=== PATIENT | male | born 1960 ===

== ENCOUNTER 2017-08-15 09:55 | Day surgery (SDC) | payer OTHER ==
[2017-08-15 11:02] LABS: BASO # 0.02 K/mm3 (0.0-2.0); BASO % 0.4 % (0.0-3.0); EOS # 0.5 (0.0-0.7); EOS % 9.3 % (1.5-5.0); GRAN # 1.84 (1.4-6.5); GRAN % 36.5 % (50.0-68.0); HEMOGLOBIN 13.8 g/dL (14.0-18.0); LYMPH # 2.5 (1.2-3.4); LYMPH % 48.6 % (22.0-35.0); MEAN CELL VOLUME 83.8 fl (80.0-105.0); MEAN CORPUSCULAR HEMOGLOBIN 29.4 pg (25.0-35.0); MEAN CORPUSCULAR HGB CONC 35.1 g/dl (31.0-37.0); MEAN PLATELET VOLUME 10.3 fl (7.0-11.0); MONO # 0.3 (0.1-0.6); MONO % 5.2 % (1.0-6.0); RBC 4.69 10^6/uL (3.5-6.1); RED CELL DISTRIBUTION WIDTH 13.5 % (11.5-14.5)
[2017-08-15 11:08] LABS: BLOOD UREA NITROGEN 13 mg/dL (7-21); CALCIUM 9.1 mg/dL (8.4-10.5); GFR AFRICAN-AMERICAN > 60; GFR NON-AFRICAN AMERICAN > 60; HDL CHOLESTEROL 49 mg/dL (29-60)
[2017-08-15 11:13] LABS: INR 1.02 (0.93-1.08); PARTIAL THROMBOPLASTIN TIME 30.9 Seconds (25.1-36.5); PROTHROMBIN TIME 11.7 SECONDS (9.4-12.5)
[2017-08-15 11:18] LABS: LDL CHOLESTEROL 77 mg/dL (0-129)
--- NOTE | 2017-08-15 13:04 | CARD ---
APPROVED REPORT EKG Measurement Heart [id number] ID [id number] <Conclusion> Sinus bradycardia Right bundle branch block Abnormal ECG
[2017-08-15] MEDS ORDERED: Midazolam 2 MG/2 ML VIAL ONE ×2 (13:56→14:16)
[2017-08-15] MEDS ORDERED: Verapamil 2 ML ONE (13:56)
[2017-08-15] MEDS ORDERED: Lidocaine 2% Inj (20ml) ONE (13:56)
[2017-08-15] MEDS ORDERED: Iodixanol 320 MG/ML 200 ML BOTTLE IV ONE (13:57)
[2017-08-15] MEDS ORDERED: Iohexol 350mgl/ml 50 ML ONE (13:57)
[2017-08-15] MEDS ORDERED: Nitroglycerin 50mg in D5W 50 MG/250 ML BOTTLE IV ONE (13:57)
[2017-08-15] MEDS ORDERED: Bacitracin 500 Units/gm Oint Foilpak UD TOP ONE (14:55)
[2017-08-15 15:59] VITALS: TEMP 98.1
--- NOTE | 2017-08-15 18:18 | CARDCATH ---
PROCEDURE DATE: 08/15/2017 INDICATIONS: Mr. Jair Wolfe is a 56-year-old male with past medical history significant for hypertension, diabetes, hyperlipidemia, referred to me for evaluation of abnormal stress test. He had past remote history of CAD and stenting. He underwent a stress test, which showed evidence of ischemia. He was therefore brought to the [facility] for further evaluation and treatment. PROCEDURES PERFORMED: Left heart catheterization with selective left and right coronary angiogram via left distal radial arterial access, 6-Malay left distal radial arterial access, percutaneous transluminal coronary angioplasty and stenting of mid right coronary artery and proximal posterior descending artery with deployment of 2 drug-eluting stents. Lesion reduction in mid right coronary artery from 80% down to 0% ARIELLE-3 flow, in posterior descending artery from 95% down to 0% ARIELLE-3 flow. Left ventriculogram, wrist band for hemostasis. TECHNIQUES OF PROCEDURE: After obtaining informed consent, the patient was brought to the cardiac cath suite in post-absorptive, non-sedated state. The patient was prepped and draped in the usual sterile fashion. A 2% lidocaine was used for infiltration of anesthesia. Using modified Seldinger technique, a 6-Malay sheath was introduced into the left distal radial arterial access. Subsequently, over a J-wire, JL4 and JR4 diagnostic catheters were used to engage the left and right coronary system. Angiograms were obtained in different orthogonal views. Subsequently, over J-, pigtail catheter was advanced into the LV and LV gram was obtained in the BEEBE view. Hemodynamics were obtained and pullback gradients were noted. CORONARY ANATOMY: Left main large-sized vessel bifurcates into LAD and left circumflex coronary artery. Left circumflex is a large-sized vessel, gives off 2 obtuse marginal branches, free of any significant disease. LAD is a large-sized vessel, has a mid LAD stent patent with the mid LAD proximal to the stent has moderate 50% stenosis and past the stent has a moderate 40% stenosis. The distal LAD at the apex has about 85% stenosis, it is a small vessel, too small for stenting. Right coronary artery large-sized vessel, gives off the right PDA and PLV branches. Mid RCA has 80% stenosis. PDA has a proximal 95% stenosis. Left ventricular end diastolic pressure was 80 mmHg. There was no gradient noted upon the aortic valve pullback. There was no AI, no MR. Left ventricular ejection fraction estimated to be 50%. INTERVENTION PERFORMED: JR4 guiding catheter used to engage the right coronary artery. Prowater wire was used to negotiate the lesion into the PDA. The patient was predilated with a 2-0 balloon and subsequently stented with a 2.25 x 15 mm Albin drug eluting stent. Subsequently, the mid RCA lesion was stented with a 3.5 x 18 Albin drug eluting stent and postdilated with a 4 noncompliant balloon. Final angiogram done showed regeneration down to 0% ARIELLE-3 flow. IMPRESSION: Successful revascularization of the mid right coronary artery and right posterior descending artery, deployment of 2 drug-eluting stents. Left anterior descending lesions are intermediate and it can be treated medically at this point in time. RECOMMENDATIONS: Continue aggressive medical management, risk factor modification. The patient is going to be discharged in 3 hours. Follow up with Dr. Jiménez in [place] office. Thank you, Dr. Jiménez for letting me participate in the care of your patient. Thank you very much. Galindo Gross MD
[2017-08-15] MEDS ORDERED: Bacitracin 500 Units/gm Oint Foilpak UD ONE (20:56)
[2017-08-15 21:06] VITALS: BP 103/57; PULSE 55; RESP 20
== END 2017-08-15 21:38 | disposition home or self-care (01) ==
LOC: CATH 09:55 → 2RNO 15:10 → CATH 21:38
PROVIDERS: ATTEND Internal Medicine Interventional Cardiology
DX: I25.10 Atherosclerotic heart disease of native coronary artery without angina pectoris (principal); E78.5 Hyperlipidemia, unspecified; E11.9 Type 2 diabetes mellitus without complications; I10 Essential (primary) hypertension; Z95.5 Presence of coronary angioplasty implant and graft
CPT/HCPCS: 36415; 80048; 80061; 85025; 85175; 85610; 85730; 86850; 86900; 93005; 93458; 99152; 99153; C1725 ×2; C1769 ×2; C1874 ×2; C1887 ×2; C1894; C9600; J1644 ×2; J2250; J3010; J7040; Q9966; Q9967

== ENCOUNTER 2018-03-10 11:32 | Emergency (ER) | payer OTHER ==
[2018-03-10 12:06] VITALS: BMI 37.5
[2018-03-10 12:07] VITALS: TEMP 98.7
[2018-03-10 12:46] LABS: BASO # 0.01 K/mm3 (0.0-2.0); BASO % 0.1 % (0.0-3.0); EOS # 0.2 (0.0-0.7); EOS % 2.3 % (1.5-5.0); GRAN # 6.49 (1.4-6.5); GRAN % 66.3 % (50.0-68.0); HEMOGLOBIN 15.1 g/dL (14.0-18.0); LYMPH # 2.4 (1.2-3.4); LYMPH % 24.4 % (22.0-35.0); MEAN CELL VOLUME 85.3 fl (80.0-105.0); MEAN CORPUSCULAR HEMOGLOBIN 30.1 pg (25.0-35.0); MEAN CORPUSCULAR HGB CONC 35.3 g/dl (31.0-37.0); MEAN PLATELET VOLUME 10.3 fl (7.0-11.0); MONO # 0.7 (0.1-0.6); MONO % 6.9 % (1.0-6.0); RBC 5.02 10^6/uL (3.5-6.1); RED CELL DISTRIBUTION WIDTH 13.7 % (11.5-14.5); WHITE BLOOD COUNT 9.8 10^3/uL (4.5-11.0)
[2018-03-10] MEDS ORDERED: cefTRIAXone 1 gm 1 GM/100 ML BAG IVPB STA (12:49)
--- NOTE | 2018-03-10 12:52 | ED PDOC ---
Arrival/HPI - General Chief Complaint: Abnormal Skin Integrity Time Seen by Provider: 03/10/18 11:37 Historian: Patient - History of Present Illness Narrative History of Present Illness (Text): 03/10/18 12:50 57yo male with pmhx of hypertension, Diabetes who present with complaint of abscess to his left knee and abdominal pain x few days. Notes that he had abscess in other parts that have resolved, but these ones started. Reports pain to the area. Denies fever, chills, nausea vomiting, diarrhea, abdominal pain, any other complaint. Past Medical History - Provider Review Nursing Documentation Reviewed: Yes - Infectious Disease Hx of Infectious Diseases: None - Cardiac Hx Cardiac Disorders: No - Pulmonary Hx Respiratory Disorders: No - Neurological Hx Neurological Disorder: No - HEENT Hx HEENT Disorder: No - Renal Hx Renal Disorder: No - Endocrine/Metabolic Hx Endocrine Disorders: Yes Hx Diabetes Mellitus Type 2: Yes - Hematological/Oncological Hx Blood Disorders: No - Integumentary Hx Dermatological Disorder: No - Musculoskeletal/Rheumatological Hx Musculoskeletal Disorders: No - Gastrointestinal Hx Gastrointestinal Disorders: No - Genitourinary/Gynecological Hx Genitourinary Disorders: No - Psychiatric Hx Psychophysiologic Disorder: No Hx Substance Use: No - Surgical History Hx Cardiac Catheterization: Yes (STENT PLACEMENT 2010) - Anesthesia Hx Anesthesia Reactions: No Hx Malignant Hyperthermia: No - Suicidal Assessment Feels Threatened In Home Enviroment: No Family/Social History - Physician Review Nursing Documentation Reviewed: Yes Family/Social History: Unknown Family HX Smoking Status: Never Smoked Hx Alcohol Use: No Hx Substance Use: No Allergies/Home Meds Allergies/Adverse Reactions: Allergies diphenhydramine [From Benadryl] Allergy (Verified 03/10/18 12:07) RASH Home Medications: Home Meds Medication Instructions Recorded Confirmed RX: Glipizide [Glipizide Xl] 10 mg PO DAILY 06/01/17 03/10/18 RX: Insulin Human NPH [Humulin N] 10 units SC HS 06/01/17 03/10/18 RX: Lisinopril [Zestril] 10 mg PO DAILY 06/01/17 03/10/18 RX: Simvastatin [Zocor] 40 mg PO DAILY 06/01/17 03/10/18 Review of Systems - Physician Review All systems were reviewed & negative as marked: Yes - Review of Systems Constitutional: Normal Eyes: Normal ENT: Normal Respiratory: Normal Cardiovascular: Normal Gastrointestinal: Normal Genitourinary Male: Normal Musculoskeletal: Normal Skin: Abscess Neurological: Normal Endocrine: Normal Hemo/Lymphatic: Normal Psychiatric: Normal Physical Exam Vital Signs Reviewed: Yes Vital Signs Temp Pulse BP Pulse Ox 03/10/18 12:07 98.7 F 80 139/73 97 Temperature: Afebrile Blood Pressure: Normal Pulse: Regular Respiratory Rate: Normal Appearance: Positive for: Well-Appearing, Non-Toxic, Comfortable Pain Distress: None Mental Status: Positive for: Alert and Oriented X 3 - Systems Exam Head: Present: Atraumatic, Normocephalic Pupils: Present: PERRL Extroacular Muscles: Present: EOMI Conjunctiva: Present: Normal Mouth: Present: Moist Mucous Membranes Neck: Present: Normal Range of Motion Respiratory/Chest: Present: Clear to Auscultation, Good Air Exchange. No: Respiratory Distress, Accessory Muscle Use Cardiovascular: Present: Regular Rate and Rhythm, Normal S1, S2. No: Murmurs Abdomen: Present: Other (superficial wound with a scab noted on lower abdominal wall). No: Tenderness, Distention, Peritoneal Signs Back: Present: Normal Inspection Upper Extremity: Present: Normal Inspection. No: Cyanosis, Edema Lower Extremity: Present: Normal Inspection, Other (Superficial wound with scab noted on left anterior knee. Surrounding erythema noted. FROM. Warmth. No crepitus). No: Edema Neurological: Present: GCS=15, CN II-XII Intact, Speech Normal Skin: Present: Warm, Dry, Normal Color. No: Rashes Psychiatric: Present: Alert, Oriented x 3, Normal Insight, Normal Concentration Medical Decision Making ED Course and Treatment: 03/10/18 18:57 Pt presented to ED for stated history. He was afebrile and hemodynamically stable. Labs was ordered without leukocytosis. Hyperglycemia was noted and pt was hydrated. Repeated FS improved PT was treated with Rocephin and DC home with Keflex. Advised to f/u with the clinic and TRT ED for worsening redness, fever or pain - Lab Interpretations Lab Results: 03/10/18 11:50 Lab Results 03/10/18 11:50: WBC 9.8, RBC 5.02, Hgb 15.1, Hct 42.8, MCV 85.3, MCH 30.1, MCHC 35.3, RDW 13.7, Plt Count 208, MPV 10.3, Gran % 66.3, Lymph % (Auto) 24.4, Emmons % (Auto) 6.9 H, Eos % (Auto) 2.3, Baso % (Auto) 0.1, Gran # 6.49, Lymph # (Auto) 2.4, Emmons # (Auto) 0.7 H, Eos # (Auto) 0.2, Baso # (Auto) 0.01 Disposition/Present on Arrival - Present on Arrival Any Indicators Present on Arrival: No History of DVT/PE: No History of Uncontrolled Diabetes: Yes Urinary Catheter: No History of Decub. Ulcer: No History Surgical Site Infection Following: None - Disposition Have Diagnosis and Disposition been Completed?: Yes Diagnosis: Hyperglycemia, Cellulitis Disposition: HOME/ ROUTINE Disposition Time: 15:15 Patient Plan: Discharge Condition: STABLE Discharge Instructions (ExitCare): Cellulitis (ED) Additional Instructions: Follow up with your doctor Return to ED for any new or worsening symptoms Prescriptions: Cephalexin [Keflex] 500 mg PO TID #21 capsule Referrals: Mandy Cote MD [Medical Doctor] - Follow up with primary Forms: [employer] ([place]an)
[2018-03-10 13:11] LABS: ALB/GLOB RATIO 1.2 (1.1-1.8); ALBUMIN 4.5 g/dL (3.0-4.8); ALT/SGPT 28 U/L (7-56); AST/SGOT 29 U/L (17-59); BLOOD UREA NITROGEN 17 mg/dL (7-21); CALCIUM 9.6 mg/dL (8.4-10.5); GFR NON-AFRICAN AMERICAN > 60
[2018-03-10] MEDS ORDERED: Sodium Chloride 0.9% 1,000 ML IV STA (13:16)
[2018-03-10 13:56] VITALS: RESP 18; O2SAT 98
[2018-03-10 15:08] VITALS: BP 135/64; PULSE 75
== END 2018-03-10 15:53 | disposition home or self-care (01) ==
LOC: ED 11:32
DX: E11.65 Type 2 diabetes mellitus with hyperglycemia (principal); L03.116 Cellulitis of left lower limb
CPT/HCPCS: 80053; 82948; 85025; 87040; 99283; J0696; J7030

== ENCOUNTER 2018-03-13 20:27 | Inpatient (IN) | payer MEDICAID, OTHER ==
[2018-03-13 21:02] VITALS: BMI 39.0
[2018-03-13] MEDS ORDERED: Clindamycin 600mg/50ml D5W 600 MG/50 ML VIAL IVPB STA (21:23)
--- NOTE | 2018-03-13 21:25 | ED PDOC ---
Arrival/HPI - General Chief Complaint: Lower Extremity Problem/Injury Time Seen by Provider: 03/13/18 21:01 Historian: Patient - History of Present Illness Narrative History of Present Illness (Text): 03/13/18 21:20 57 year old male, whose past medical history includes hypertension and diabetes, presents to the emergency department with complaint of abscess to the left knee, for 3 days. Patient was seen in emergency department 3 days prior for symptoms, was given Rocephin and Rx for Keflex, which he states he has been taking and his symptoms have worsened. Patient states he has had other scattered blisters in the past, but have all resolved. Patient informs it is painful to touch and seems to have reopened. Patient denies any fevers, chills, headache, dizziness, chest pain, shortness of breath, cough, abdominal pain, nausea, vomiting, diarrhea, back pain, neck pain, or any other complaint. 03/14/18 03:24 Time/Duration: < week (3 days) Symptom Onset: Gradual Past Medical History - Provider Review Nursing Documentation Reviewed: Yes - Infectious Disease Hx of Infectious Diseases: None - Cardiac Hx Cardiac Disorders: No - Pulmonary Hx Respiratory Disorders: No - Neurological Hx Neurological Disorder: No - HEENT Hx HEENT Disorder: No - Renal Hx Renal Disorder: No - Endocrine/Metabolic Hx Endocrine Disorders: Yes Hx Diabetes Mellitus Type 2: Yes - Hematological/Oncological Hx Blood Disorders: No - Integumentary Hx Dermatological Disorder: No - Musculoskeletal/Rheumatological Hx Musculoskeletal Disorders: No - Gastrointestinal Hx Gastrointestinal Disorders: No - Genitourinary/Gynecological Hx Genitourinary Disorders: No - Psychiatric Hx Psychophysiologic Disorder: No Hx Substance Use: No - Surgical History Hx Cardiac Catheterization: Yes (STENT PLACEMENT 2010) - Anesthesia Hx Anesthesia Reactions: No Hx Malignant Hyperthermia: No - Suicidal Assessment Feels Threatened In Home Enviroment: No Family/Social History - Physician Review Nursing Documentation Reviewed: Yes Family/Social History: No Known Family HX Smoking Status: Never Smoked Hx Alcohol Use: No Hx Substance Use: No Allergies/Home Meds Allergies/Adverse Reactions: Allergies diphenhydramine [From Benadryl] Allergy (Verified 03/13/18 21:05) RASH Home Medications: Home Meds Medication Instructions Recorded Confirmed RX: Glipizide [Glipizide Xl] 10 mg PO DAILY 06/01/17 03/14/18 RX: Insulin Human NPH [Humulin N] 10 units SC HS 06/01/17 03/14/18 RX: Lisinopril [Zestril] 10 mg PO DAILY 06/01/17 03/14/18 RX: Simvastatin [Zocor] 40 mg PO DAILY 06/01/17 03/14/18 Review of Systems - Physician Review All systems were reviewed & negative as marked: Yes - Review of Systems Constitutional: absent: Fevers, Night Sweats Respiratory: absent: SOB, Cough Cardiovascular: absent: Chest Pain Gastrointestinal: absent: Abdominal Pain, Diarrhea, Nausea, Vomiting Musculoskeletal: absent: Back Pain, Neck Pain Skin: Abscess (to left knee) Neurological: absent: Headache, Dizziness Physical Exam Vital Signs Reviewed: Yes Vital Signs Temp Pulse Resp BP Pulse Ox 03/13/18 20:57 98.3 F 89 18 148/67 97 Temperature: Afebrile Blood Pressure: Normal Pulse: Regular Respiratory Rate: Normal Appearance: Positive for: Well-Appearing, Non-Toxic, Comfortable Pain Distress: None Mental Status: Positive for: Alert and Oriented X 3 - Systems Exam Head: Present: Atraumatic, Normocephalic Pupils: Present: PERRL Extroacular Muscles: Present: EOMI Conjunctiva: Present: Normal Mouth: Present: Moist Mucous Membranes Neck: Present: Normal Range of Motion Respiratory/Chest: Present: Clear to Auscultation, Good Air Exchange. No: Respiratory Distress, Accessory Muscle Use Cardiovascular: Present: Regular Rate and Rhythm, Normal S1, S2. No: Murmurs Abdomen: No: Tenderness, Distention, Peritoneal Signs Back: Present: Normal Inspection Upper Extremity: Present: Normal Inspection. No: Cyanosis, Edema Lower Extremity: Present: NORMAL PULSES (distal pulses 2+), Normal ROM, Tenderness, Erythema, Neurovascularly Intact Neurological: Present: Speech Normal, Motor Func Grossly Intact, Normal Sensory Function Skin: Present: Warm, Dry, Normal Color, Erythematous (area surrounding abscess), Abscess (to the left knee, with clear drainage). No: Rashes, Hot Psychiatric: Present: Alert, Oriented x 3, Normal Insight, Normal Concentration Medical Decision Making ED Course and Treatment: 03/13/18 21:35 Impression: 57 year old male presents with left knee abscess Plan: -- CMP -- CBC -- Clindamycin -- Blood Cultures -- Knee X-rays -- Reassess and disposition Prior Visits: Notes and results from previous visits were reviewed. On 03/10/18 patient came in complaining of leg abscess. Patient was discharged home with prescription of Keflex. Progress Notes: 03/13/18 21:37 Patient wound has been marked 03/13/18 23:45 Dr. Membreno accepts patient under his service. - Scribe Statement The provider has reviewed the documentation as recorded by the Yogi Jackson Provider Scribe Attestation: All medical record entries made by the Miraibrossy were at my direction and personally dictated by me. I have reviewed the chart and agree that the record accurately reflects my personal performance of the history, physical exam, medical decision making, and the department course for this patient. I have also personally directed, reviewed, and agree with the discharge instructions and disposition. Disposition/Present on Arrival - Present on Arrival Any Indicators Present on Arrival: Yes History of DVT/PE: No History of Uncontrolled Diabetes: Yes Urinary Catheter: No History of Decub. Ulcer: No History Surgical Site Infection Following: None - Disposition Have Diagnosis and Disposition been Completed?: Yes Diagnosis: Cellulitis, Failure of outpatient treatment Disposition: HOSPITALIZED Disposition Time: 23:51 Patient Plan: Admission Patient Problems: Current Active Problems Problem Status Onset Cellulitis Acute Failure of outpatient treatment Acute Condition: STABLE
[2018-03-13] MEDS ORDERED: Sodium Chloride 0.9% 1,000 ML IV SCH (21:45)
[2018-03-13 22:05] LABS: BASO # 0.02 K/mm3 (0.0-2.0); BASO % 0.2 % (0.0-3.0); EOS # 0.3 (0.0-0.7); EOS % 3.3 % (1.5-5.0); GRAN # 5.44 (1.4-6.5); GRAN % 59.4 % (50.0-68.0); HEMOGLOBIN 14.2 g/dL (14.0-18.0); LYMPH # 2.8 (1.2-3.4); LYMPH % 30.3 % (22.0-35.0); MEAN CELL VOLUME 85.3 fl (80.0-105.0); MEAN CORPUSCULAR HEMOGLOBIN 29.9 pg (25.0-35.0); MEAN CORPUSCULAR HGB CONC 35.1 g/dl (31.0-37.0); MEAN PLATELET VOLUME 10.7 fl (7.0-11.0); MONO # 0.6 (0.1-0.6); MONO % 6.8 % (1.0-6.0); RBC 4.75 10^6/uL (3.5-6.1); RED CELL DISTRIBUTION WIDTH 13.5 % (11.5-14.5); WHITE BLOOD COUNT 9.2 10^3/uL (4.5-11.0)
[2018-03-13 22:23] LABS: ALB/GLOB RATIO 1.1 (1.1-1.8); BLOOD UREA NITROGEN 18 mg/dL (7-21); CALCIUM 9.5 mg/dL (8.4-10.5); GFR NON-AFRICAN AMERICAN > 60
[2018-03-13 22:27] LABS: ALT/SGPT 24 U/L (7-56); AST/SGOT 28 U/L (17-59)
[2018-03-14] MEDS: Vancomycin 1gm in NS 250ml 1 GM/250 ML BAG IVPB SCH ×3 (01:03→23:17)
--- NOTE | 2018-03-14 01:23 | CP.PCM.HP ---
<Jigar Jaeger - Last Filed: 03/14/18 06:06> History of Present Illness - History of Present Illness History of Present Illness: Marielaleja Jaeger, PGY1 Hospital H&P This is a 57 year old Greenlandic speaking male with PMH of DM, HLD, HTN and CAD s/p 2 stents in 07/2017 presenting to the hospital for left knee swelling. Patient states he noticed swelling in left knee on Saturday morning after he "popped a black head" on his left knee. He admits to developing blackheads on his right lower abdomen over the last week. He was seen in the ED earlier this week for his left knee swelling and discharged on 5 day course of oral antibiotics (keflex). Patient says he was instructed by the ED to return if swelling worsens and returned today after noticing clear fluid discharge and continued swelling t his morning. He denies any bloody or pus draining from left knee. He denies ever having similar symptoms in past. He denies CP, SOB, fevers, nausea, vomiting, back pain, abdominal pain, urinary complaints, numbness, tingling, swelling, diarrhea, constipation, recent travel, sickness, sick contacts, trauma and lifestyle change including diet and weight loss. 12 point ROS noted here, otherwise unremarkable. PMD: [facility] in [place] PMH: DM, HLD, HTN and CAD s/p 2 stents in 07/2017 Meds: reviewed, as per TENISHA SH: denies drinking, smoking and drug Sx: 2 cardiac stents in 07/2017 FH: HTN, DM All: diphenhydramine Present on Admission - Present on Admission Any Indicators Present on Admission: Yes History of Uncontrolled Diabetes: Yes Past Patient History - Infectious Disease Hx of Infectious Diseases: None - Past Medical History & Family History Past Medical History?: No - Past Social History Smoking Status: Never Smoked - CARDIAC Hx Cardiac Disorders: No - PULMONARY Hx Respiratory Disorders: No - NEUROLOGICAL Hx Neurological Disorder: No - HEENT Hx HEENT Problems: No - RENAL Hx Chronic Kidney Disease: No - ENDOCRINE/METABOLIC Hx Endocrine Disorders: Yes Hx Diabetes Mellitus Type 2: Yes - HEMATOLOGICAL/ONCOLOGICAL Hx Blood Disorders: No - INTEGUMENTARY Hx Dermatological Problems: No - MUSCULOSKELETAL/RHEUMATOLOGICAL Hx Musculoskeletal Disorders: No - GASTROINTESTINAL Hx Gastrointestinal Disorders: No - GENITOURINARY/GYNECOLOGICAL Hx Genitourinary Disorders: No - PSYCHIATRIC Hx Psychophysiologic Disorder: No Hx Substance Use: No - SURGICAL HISTORY Hx Cardiac Catheterization: Yes (STENT PLACEMENT 2010) - ANESTHESIA Hx Anesthesia Reactions: No Hx Malignant Hyperthermia: No Meds Allergies/Adverse Reactions: Allergies Allergy/AdvReac Type Severity Reaction Status Date / Time diphenhydramine Allergy RASH Verified 03/13/18 21:05 [From Benadryl] Physical Exam - Constitutional Appears: No Acute Distress - Head Exam Head Exam: ATRAUMATIC, NORMAL INSPECTION - Eye Exam Eye Exam: EOMI Pupil Exam: PERRL - ENT Exam ENT Exam: Mucous Membranes Moist - Respiratory Exam Respiratory Exam: Clear to Auscultation Bilateral, NORMAL BREATHING PATTERN. absent: Accessory Muscle Use, Wheezes, Respiratory Distress - Cardiovascular Exam Cardiovascular Exam: REGULAR RHYTHM, +S1, +S2. absent: Tachycardia - GI/Abdominal Exam GI & Abdominal Exam: Normal Bowel Sounds, Soft. absent: Firm, Guarding, Tenderness Additional comments: several scattered raised lesions with central blackhead noted along RLQ of abdomen, minimal erythema appreciated - Extremities Exam Extremities exam: Positive for: pedal pulses present. Negative for: calf tenderness, tenderness Additional comments: Left knee has approx 5 cm indurated area with swelling and mild eryhtema present. No active discharge, blood or pus appreciated. - Neurological Exam Neurological exam: Alert, Oriented x3 - Skin Skin Exam: Normal Color, Warm Results - Vital Signs Recent Vital Signs: Last Vital Signs Temp 98.3 F 03/13/18 20:57 Pulse 89 03/13/18 20:57 Resp 18 03/13/18 20:57 BP 148/67 03/13/18 20:57 Pulse Ox 97 03/13/18 20:57 - Labs Result Diagrams: 03/13/18 21:43 03/13/18 21:43 Labs: Laboratory Results - last 24 hr 03/13/18 03/13/18 21:43 21:43 WBC 9.2 RBC 4.75 Hgb 14.2 Hct 40.5 L MCV 85.3 MCH 29.9 MCHC 35.1 RDW 13.5 Plt Count 228 MPV 10.7 Gran % 59.4 Lymph % (Auto) 30.3 Page % (Auto) 6.8 H Eos % (Auto) 3.3 Baso % (Auto) 0.2 Gran # 5.44 Lymph # (Auto) 2.8 Page # (Auto) 0.6 Eos # (Auto) 0.3 Baso # (Auto) 0.02 Sodium 136 Potassium 4.3 Chloride 107 Carbon Dioxide 21 Anion Gap 12 BUN 18 Creatinine 0.7 L Est GFR ( Amer) > 60 Est GFR (Non-Af Amer) > 60 Random Glucose 122 H Calcium 9.5 Total Bilirubin 0.4 AST 28 ALT 24 Alkaline Phosphatase 94 Total Protein 7.6 Albumin 4.0 Globulin 3.7 Albumin/Globulin Ratio 1.1 Assessment & Plan - Assessment and Plan (Free Text) Assessment: This is a 57 year old Greenlandic speaking male with PMH of DM, HLD, HTN and CAD s/p 2 stents in 07/2017 presenting to the hospital for left knee swelling. Plan: Left knee swelling -concern for cellulitis vs underlying abscess -afebrile, no WBC present -blood, wound culture pending -vancomycin day 1 -Left knee xray does not show acute pathology, f/u official read -ESR, CRP pending -procalc pending -A1c pending -ID on consult, Dr. Recinos -consider I&D -Gen surg on consult, Dr. Kim Hx of CAD s/p stents -continue ASA, plavix Hx of HTN -continue home BP meds. Toprol XL, imdur and lisinopril Hx of DM -insulin ACHS, 10 units HS Hx of HLD -continue statin PPX/Diet -lovneox, protonix -HHD Patient seen and case discussed with attending, Dr. Membreno <Pilar Membreno - Last Filed: 03/14/18 06:57> Results - Vital Signs Recent Vital Signs: Last Vital Signs Temp 98.1 F 03/14/18 01:44 Pulse 73 03/14/18 01:44 Resp 18 03/14/18 01:44 BP 125/74 03/14/18 01:44 Pulse Ox 95 03/14/18 01:44 - Labs Result Diagrams: 03/13/18 21:43 03/13/18 21:43 Labs: Laboratory Results - last 24 hr 03/13/18 03/13/18 21:43 21:43 WBC 9.2 RBC 4.75 Hgb 14.2 Hct 40.5 L MCV 85.3 MCH 29.9 MCHC 35.1 RDW 13.5 Plt Count 228 MPV 10.7 Gran % 59.4 Lymph % (Auto) 30.3 Page % (Auto) 6.8 H Eos % (Auto) 3.3 Baso % (Auto) 0.2 Gran # 5.44 Lymph # (Auto) 2.8 Page # (Auto) 0.6 Eos # (Auto) 0.3 Baso # (Auto) 0.02 Sodium 136 Potassium 4.3 Chloride 107 Carbon Dioxide 21 Anion Gap 12 BUN 18 Creatinine 0.7 L Est GFR ( Amer) > 60 Est GFR (Non-Af Amer) > 60 Random Glucose 122 H Calcium 9.5 Total Bilirubin 0.4 AST 28 ALT 24 Alkaline Phosphatase 94 Total Protein 7.6 Albumin 4.0 Globulin 3.7 Albumin/Globulin Ratio 1.1 Attending/Attestation - Attestation I have personally seen and examined this patient.: Yes I have fully participated in the care of the patient.: Yes I have reviewed all pertinent clinical information: Yes
[2018-03-14] MEDS ORDERED: Pneumococcal 23-Valent Vaccine IM ONE (01:56)
[2018-03-14] MEDS ORDERED: Influenza Vaccine 60 mcg/0.5 mL SYR (4YR UP) IM ONE (01:56)
[2018-03-14] MEDS: Pantoprazole 40 mg EC Tab PO SCH (05:51)
[2018-03-14 07:02] LABS: ALB/GLOB RATIO 1.1 (1.1-1.8); ALBUMIN 3.8 g/dL (3.0-4.8); ALT/SGPT 23 U/L (7-56); AST/SGOT 25 U/L (17-59); BLOOD UREA NITROGEN 15 mg/dL (7-21); CALCIUM 9.6 mg/dL (8.4-10.5); GFR NON-AFRICAN AMERICAN > 60
[2018-03-14 07:03] LABS: BASO # 0.01 K/mm3 (0.0-2.0); BASO % 0.1 % (0.0-3.0); EOS # 0.3 (0.0-0.7); EOS % 4.3 % (1.5-5.0); GRAN # 3.53 (1.4-6.5); GRAN % 51.2 % (50.0-68.0); HEMOGLOBIN 13.5 g/dL (14.0-18.0); LYMPH # 2.6 (1.2-3.4); MEAN CELL VOLUME 85.9 fl (80.0-105.0); MEAN CORPUSCULAR HEMOGLOBIN 28.8 pg (25.0-35.0); MEAN CORPUSCULAR HGB CONC 33.6 g/dl (31.0-37.0); MONO # 0.5 (0.1-0.6); MONO % 7.4 % (1.0-6.0); RBC 4.68 10^6/uL (3.5-6.1); RED CELL DISTRIBUTION WIDTH 13.7 % (11.5-14.5); WHITE BLOOD COUNT 6.9 10^3/uL (4.5-11.0)
[2018-03-14] MEDS: Insulin Reg-LOW-Coverage SC SCH ×4 (08:35→22:41)
--- NOTE | 2018-03-14 09:42 | RAD ---
Date of service: 03/13/2018 PROCEDURE: Left Knee Radiographs. HISTORY: Pain. COMPARISON: None. FINDINGS: BONES: Normal. No fracture. JOINTS: Normal. No osteoarthritis. JOINT EFFUSION: None. OTHER FINDINGS: None. IMPRESSION: No acute findings related to/ accounting for the clinical presentation.
--- NOTE | 2018-03-14 09:45 | CP.PCM.CON ---
History of Present Illness - History of Present Illness History of Present Illness: 57M with PMHx of PMH: DM, HLD, HTN and CAD s/p 2 stents in 07/2017 presented to [facility] with complaints of left knee swelling. Patient reports he first noticed small skin lesion above his left knee Sat morning after squeezing the pimple like lesion on his left knee. Patient reports he was seen in the ED a week prior where he was prescribed a 5 day course of oral antibiotics. Patient states area did not improve so he decided to come back. At time of examination he denied fever/chills, CP, SOB, nausea/vomiting, abdominal pain, dysuria. PMH: DM, HLD, HTN and CAD s/p 2 stents in 07/2017 Meds: reviewed, as per TENISHA SH: denies drinking, smoking and drug Sx: 2 cardiac stents in 07/2017 FH: HTN, DM All: diphenhydramine Review of Systems - Review of Systems Review of Systems: 10 pt ROS unremarkable except as stated in HPI Past Patient History - Infectious Disease Hx of Infectious Diseases: None - Past Medical History & Family History Past Medical History?: No - Past Social History Smoking Status: Never Smoked - CARDIAC Hx Cardiac Disorders: No - PULMONARY Hx Respiratory Disorders: No - NEUROLOGICAL Hx Neurological Disorder: No - HEENT Hx HEENT Problems: No - RENAL Hx Chronic Kidney Disease: No - ENDOCRINE/METABOLIC Hx Endocrine Disorders: Yes Hx Diabetes Mellitus Type 2: Yes - HEMATOLOGICAL/ONCOLOGICAL Hx Blood Disorders: No - INTEGUMENTARY Hx Dermatological Problems: No - MUSCULOSKELETAL/RHEUMATOLOGICAL Hx Musculoskeletal Disorders: No - GASTROINTESTINAL Hx Gastrointestinal Disorders: No - GENITOURINARY/GYNECOLOGICAL Hx Genitourinary Disorders: No - PSYCHIATRIC Hx Psychophysiologic Disorder: No Hx Substance Use: No - SURGICAL HISTORY Hx Cardiac Catheterization: Yes (STENT PLACEMENT 2010) - ANESTHESIA Hx Anesthesia Reactions: No Hx Malignant Hyperthermia: No Meds Allergies/Adverse Reactions: Allergies Allergy/AdvReac Type Severity Reaction Status Date / Time diphenhydramine Allergy RASH Verified 03/13/18 21:05 [From Benadryl] - Medications Medications: Current Medications Acetaminophen (Tylenol 325mg Tab) 650 mg PO Q6H PRN PRN Reason: Fever >100.4 F Aspirin (Aspirin Chewable) 81 mg PO DAILY [facility] Atorvastatin Calcium (Lipitor) 40 mg PO DIN [facility] Clopidogrel Bisulfate (Plavix) 75 mg PO DAILY [facility] Enoxaparin Sodium (Lovenox) 40 mg SC DAILY [facility]; Protocol Vancomycin HCl (Vancomycin 1gm) 1 gm in 250 mls @ 167 mls/hr IVPB Q12H [facility]; Protocol Last Admin: 03/14/18 01:03 Dose: 167 mls/hr Insulin Human NPH (Humulin N) 10 units SC HS [facility] Insulin Human Regular (Humulin R Low) 0 units SC ACHS [facility]; Protocol Last Admin: 03/14/18 08:35 Dose: Not Given Isosorbide Mononitrate (Imdur Er) 30 mg PO BID [facility] Lisinopril (Zestril) 10 mg PO DAILY [facility] Metoprolol Succinate (Toprol Xl) 25 mg PO DAILY [facility] Pantoprazole Sodium (Protonix Ec Tab) 40 mg PO 0600 [facility] Last Admin: 03/14/18 05:51 Dose: 40 mg Physical Exam - Constitutional Appears: Non-toxic, No Acute Distress - Head Exam Head Exam: NORMOCEPHALIC - Eye Exam Eye Exam: EOMI, Normal appearance - ENT Exam ENT Exam: Mucous Membranes Moist - Respiratory Exam Respiratory Exam: NORMAL BREATHING PATTERN - Cardiovascular Exam Cardiovascular Exam: +S1, +S2 - GI/Abdominal Exam GI & Abdominal Exam: Soft - Neurological Exam Neurological exam: Alert, Oriented x3 - Psychiatric Exam Psychiatric exam: Normal Mood - Skin Skin Exam: Dry, Erythema, Intact, Warm Additional comments: small erythematous skin abscess above left patella with few punctate white heads Results - Vital Signs Recent Vital Signs: Last Vital Signs Temp 98.1 F 03/14/18 01:44 Pulse 73 03/14/18 01:44 Resp 18 03/14/18 01:44 BP 125/74 03/14/18 01:44 Pulse Ox 95 03/14/18 01:44 - Labs Result Diagrams: 03/14/18 06:00 03/14/18 06:00 Labs: Laboratory Results - last 24 hr 03/13/18 03/13/18 03/14/18 21:43 21:43 06:00 WBC 9.2 6.9 D RBC 4.75 4.68 Hgb 14.2 13.5 L Hct 40.5 L 40.2 L MCV 85.3 85.9 MCH 29.9 28.8 MCHC 35.1 33.6 RDW 13.5 13.7 Plt Count 228 219 MPV 10.7 11.0 Gran % 59.4 51.2 Lymph % (Auto) 30.3 37.0 H E[place] % (Auto) 6.8 H 7.4 H Eos % (Auto) 3.3 4.3 Baso % (Auto) 0.2 0.1 Gran # 5.44 3.53 Lymph # (Auto) 2.8 2.6 E[place] # (Auto) 0.6 0.5 Eos # (Auto) 0.3 0.3 Baso # (Auto) 0.02 0.01 ESR 26 H Sodium 136 Potassium 4.3 Chloride 107 Carbon Dioxide 21 Anion Gap 12 BUN 18 Creatinine 0.7 L Est GFR ( Amer) > 60 Est GFR (Non-Af Amer) > 60 POC Glucose (mg/dL) Random Glucose 122 H Calcium 9.5 Phosphorus Magnesium Total Bilirubin 0.4 AST 28 ALT 24 Alkaline Phosphatase 94 Total Protein 7.6 Albumin 4.0 Globulin 3.7 Albumin/Globulin Ratio 1.1 03/14/18 03/14/18 03/14/18 06:00 06:00 08:27 WBC RBC Hgb Hct MCV MCH MCHC RDW Plt Count MPV Gran % Lymph % (Auto) [place] % (Auto) Eos % (Auto) Baso % (Auto) Gran # Lymph # (Auto) [place] # (Auto) Eos # (Auto) Baso # (Auto) ESR Sodium 136 Potassium 4.3 Chloride 106 Carbon Dioxide 22 Anion Gap 12 BUN 15 Creatinine 0.7 L Est GFR ( Amer) > 60 Est GFR (Non-Af Amer) > 60 POC Glucose (mg/dL) 152 H Random Glucose 145 H Calcium 9.6 Phosphorus 4.2 Magnesium 1.7 Total Bilirubin 0.5 AST 25 ALT 23 Alkaline Phosphatase 86 Total Protein 7.3 Albumin 3.8 Globulin 3.5 Albumin/Globulin Ratio 1.1 Assessment & Plan - Assessment and Plan (Free Text) Assessment: 57M with small left skin abscess above left patella Plan: Reg diet Warm compresses to left patella Obtain wound culture once purulent fluid expressed ABx Analgesic prn D/w Dr. Julio Arnold PGY3
[2018-03-14] MEDS: Metoprolol Succinate 25 mg XL Tab PO SCH (09:51)
[2018-03-14] MEDS: Enoxaparin 40 mg Syringe SC SCH (09:52)
--- NOTE | 2018-03-14 11:46 | CP.PCM.CON ---
<KeithJaime - Last Filed: 03/14/18 11:28> History of Present Illness - History of Present Illness History of Present Illness: ID Consult Note - Dr. White 57 Icelandic speaking M with PMHxof DM, HLD, HTN and CAD s/p 2 LEXII [place] [facility] [place] complaints of left knee discomfort, swelling, and open wound. Patient went to ED for same symptoms and complaints and was prescribed 5 days of Keflex, however felt it was worsening in terms of serous drainage and greater swelling and decided to seek further medical attention. He initially noticed a "pimple" and some swelling after he decided to pop the pimple and progressive discomfort. ID was consulted to further evaluate left knee abscess. Patient was seen and examined at bedside. Patient is able to weight bear and is ambulatory. Patient admitted to 2 episodes of loose stool today. He denied fever, chills, shortness of breath, chest pains, abdominal pains, nausea, vomiting, constipation or dysuria. PMHx: DM, HLD, HTN and CAD s/p 2 stents PSHx: 2 stents SHx: Denied tobacco/etoh/illicits FamHx: HTN, DM Meds: MAR reviewed Allergies: Diphenhydramine Review of Systems - Review of Systems Review of Systems: as per HPI otherwise negative Past Patient History - Infectious Disease Hx of Infectious Diseases: None - Past Medical History & Family History Past Medical History?: No - Past Social History Smoking Status: Never Smoked - CARDIAC Hx Cardiac Disorders: No - PULMONARY Hx Respiratory Disorders: No - NEUROLOGICAL Hx Neurological Disorder: No - HEENT Hx HEENT Problems: No - RENAL Hx Chronic Kidney Disease: No - ENDOCRINE/METABOLIC Hx Endocrine Disorders: Yes Hx Diabetes Mellitus Type 2: Yes - HEMATOLOGICAL/ONCOLOGICAL Hx Blood Disorders: No - INTEGUMENTARY Hx Dermatological Problems: No - MUSCULOSKELETAL/RHEUMATOLOGICAL Hx Musculoskeletal Disorders: No - GASTROINTESTINAL Hx Gastrointestinal Disorders: No - GENITOURINARY/GYNECOLOGICAL Hx Genitourinary Disorders: No - PSYCHIATRIC Hx Psychophysiologic Disorder: No Hx Substance Use: No - SURGICAL HISTORY Hx Cardiac Catheterization: Yes (STENT PLACEMENT 2010) - ANESTHESIA Hx Anesthesia Reactions: No Hx Malignant Hyperthermia: No Meds Allergies/Adverse Reactions: Allergies Allergy/AdvReac Type Severity Reaction Status Date / Time diphenhydramine Allergy RASH Verified 03/13/18 21:05 [From Benadryl] - Medications Medications: Current Medications Acetaminophen (Tylenol 325mg Tab) 650 mg PO Q6H PRN PRN Reason: Fever >100.4 F Aspirin (Aspirin Chewable) 81 mg PO DAILY [facility] Last Admin: 03/14/18 09:51 Dose: 81 mg Atorvastatin Calcium (Lipitor) 40 mg PO DIN [facility] Clopidogrel Bisulfate (Plavix) 75 mg PO DAILY [facility] Last Admin: 03/14/18 09:51 Dose: 75 mg Enoxaparin Sodium (Lovenox) 40 mg SC DAILY [facility]; Protocol Last Admin: 03/14/18 09:52 Dose: 40 mg Vancomycin HCl (Vancomycin 1gm) 1 gm in 250 mls @ 167 mls/hr IVPB Q12H [facility]; P rotocol Last Admin: 03/14/18 01:03 Dose: 167 mls/hr Insulin Human NPH (Humulin N) 10 units SC HS [facility] Insulin Human Regular (Humulin R Low) 0 units SC ACHS [facility]; Protocol Last Admin: 03/14/18 08:35 Dose: Not Given Isosorbide Mononitrate (Imdur Er) 30 mg PO BID [facility] Last Admin: 03/14/18 09:50 Dose: 30 mg Lisinopril (Zestril) 10 mg PO DAILY [facility] Last Admin: 03/14/18 09:51 Dose: 10 mg Metoprolol Succinate (Toprol Xl) 25 mg PO DAILY [facility] Last Admin: 03/14/18 09:51 Dose: 25 mg Pantoprazole Sodium (Protonix Ec Tab) 40 mg PO 0600 [facility] Last Admin: 03/14/18 05:51 Dose: 40 mg Physical Exam - Constitutional Appears: No Acute Distress - Head Exam Head Exam: ATRAUMATIC, NORMAL INSPECTION, NORMOCEPHALIC - Eye Exam Eye Exam: EOMI, Normal appearance, PERRL Pupil Exam: NORMAL ACCOMODATION, PERRL - ENT Exam ENT Exam: Mucous Membranes Moist, Normal Exam - Neck Exam Neck exam: Positive for: Normal Inspection - Respiratory Exam Respiratory Exam: Clear to Auscultation Bilateral, NORMAL BREATHING PATTERN - Cardiovascular Exam Cardiovascular Exam: REGULAR RHYTHM, +S1, +S2 - GI/Abdominal Exam GI & Abdominal Exam: Normal Bowel Sounds, Soft. absent: Tenderness - Extremities Exam Additional comments: Rt knee swelling and ulcer - Neurological Exam Neurological exam: Alert, CN II-XII Intact, Normal Gait, Oriented x3, Reflexes Normal - Psychiatric Exam Psychiatric exam: Normal Affect, Normal Mood - Skin Skin Exam: Dry, Intact, Normal Color, Warm Results - Vital Signs Recent Vital Signs: Last Vital Signs Temp 98.1 F 03/14/18 01:44 Pulse 64 03/14/18 09:51 Resp 18 03/14/18 01:44 BP 134/76 03/14/18 09:51 Pulse Ox 95 03/14/18 01:44 - Labs Result Diagrams: 03/14/18 06:00 03/14/18 06:00 Labs: Laboratory Results - last 24 hr 03/13/18 03/13/18 03/14/18 21:43 21:43 06:00 WBC 9.2 6.9 D RBC 4.75 4.68 Hgb 14.2 13.5 L Hct 40.5 L 40.2 L MCV 85.3 85.9 MCH 29.9 28.8 MCHC 35.1 33.6 RDW 13.5 13.7 Plt Count 228 219 MPV 10.7 11.0 Gran % 59.4 51.2 Lymph % (Auto) 30.3 37.0 H [place] % (Auto) 6.8 H 7.4 H Eos % (Auto) 3.3 4.3 Baso % (Auto) 0.2 0.1 Gran # 5.44 3.53 Lymph # (Auto) 2.8 2.6 Gaston # (Auto) 0.6 0.5 Eos # (Auto) 0.3 0.3 Baso # (Auto) 0.02 0.01 ESR 26 H Sodium 136 Potassium 4.3 Chloride 107 Carbon Dioxide 21 Anion Gap 12 BUN 18 Creatinine 0.7 L Est GFR ( Amer) > 60 Est GFR (Non-Af Amer) > 60 POC Glucose (mg/dL) Random Glucose 122 H Calcium 9.5 Phosphorus Magnesium Total Bilirubin 0.4 AST 28 ALT 24 Alkaline Phosphatase 94 Total Protein 7.6 Albumin 4.0 Globulin 3.7 Albumin/Globulin Ratio 1.1 03/14/18 03/14/18 03/14/18 06:00 06:00 08:27 WBC RBC Hgb Hct MCV MCH MCHC RDW Plt Count MPV Gran % Lymph % (Auto) Gaston % (Auto) Eos % (Auto) Baso % (Auto) Gran # Lymph # (Auto) Gaston # (Auto) Eos # (Auto) Baso # (Auto) ESR Sodium 136 Potassium 4.3 Chloride 106 Carbon Dioxide 22 Anion Gap 12 BUN 15 Creatinine 0.7 L Est GFR ( Amer) > 60 Est GFR (Non-Af Amer) > 60 POC Glucose (mg/dL) 152 H Random Glucose 145 H Calcium 9.6 Phosphorus 4.2 Magnesium 1.7 Total Bilirubin 0.5 AST 25 ALT 23 Alkaline Phosphatase 86 Total Protein 7.3 Albumin 3.8 Globulin 3.5 Albumin/Globulin Ratio 1.1 Assessment & Plan - Assessment and Plan (Free Text) Assessment: 57 Icelandic speaking M with PMHxof DM, HLD, HTN and CAD s/p 2 LEXII [place] [facility] [place] complaints of left knee discomfort, swelling, and open wound admitted for likely inadequate abx coverage outpt for soft tissue abscess. Left Knee Soft Tissue abscess DM HLD CAD s/p 2 LEXII Plan: Will continue with vancomycin day 1, clindamycin in ED fu cxs, VSS, ESR:26, CRP pending, HIV fu surgery consulted, warm compress PT Will continue to monitor <Kimani White S - Last Filed: 03/14/18 21:39> Meds - Medications Medications: Current Medications Acetaminophen (Tylenol 325mg Tab) 650 mg PO Q6H PRN PRN Reason: Fever >100.4 F Aspirin (Aspirin Chewable) 81 mg PO DAILY [facility] Last Admin: 03/14/18 09:51 Dose: 81 mg Atorvastatin Calcium (Lipitor) 40 mg PO DIN [facility] Last Admin: 03/14/18 17:39 Dose: 40 mg Clopidogrel Bisulfate (Plavix) 75 mg PO DAILY [facility] Last Admin: 03/14/18 09:51 Dose: 75 mg Enoxaparin Sodium (Lovenox) 40 mg SC DAILY [facility]; Protocol Last Admin: 03/14/18 09:52 Dose: 40 mg Vancomycin HCl (Vancomycin 1gm) 1 gm in 250 mls @ 167 mls/hr IVPB Q12H [facility]; Protocol Last Admin: 03/14/18 11:27 Dose: 167 mls/hr Insulin Human NPH (Humulin N) 10 units SC HS [facility] Insulin Human Regular (Humulin R Low) 0 units SC ACHS [facility]; Protocol Last Admin: 03/14/18 17:38 Dose: 2 unit Isosorbide Mononitrate (Imdur Er) 30 mg PO BID [facility] Last Admin: 03/14/18 17:38 Dose: 30 mg Lisinopril (Zestril) 10 mg PO DAILY [facility] Last Admin: 03/14/18 09:51 Dose: 10 mg Metoprolol Succinate (Toprol Xl) 25 mg PO DAILY [facility] Last Admin: 03/14/18 09:51 Dose: 25 mg Pantoprazole Sodium (Protonix Ec Tab) 40 mg PO 0600 [facility] Last Admin: 03/14/18 05:51 Dose: 40 mg Results - Vital Signs Recent Vital Signs: Last Vital Signs Temp 97.9 F 03/14/18 15:54 Pulse 74 03/14/18 15:54 Resp 20 03/14/18 15:54 BP 94/60 L 03/14/18 15:54 Pulse Ox 94 L 03/14/18 15:54 - Labs Result Diagrams: 03/14/18 06:00 03/14/18 06:00 Labs: Laboratory Results - last 24 hr 03/13/18 03/13/18 03/14/18 21:43 21:43 06:00 WBC 9.2 6.9 D RBC 4.75 4.68 Hgb 14.2 13.5 L Hct 40.5 L 40.2 L MCV 85.3 85.9 MCH 29.9 28.8 MCHC 35.1 33.6 RDW 13.5 13.7 Plt Count 228 219 MPV 10.7 11.0 Gran % 59.4 51.2 Lymph % (Auto) 30.3 37.0 H G[place] % (Auto) 6.8 H 7.4 H Eos % (Auto) 3.3 4.3 Baso % (Auto) 0.2 0.1 Gran # 5.44 3.53 Lymph # (Auto) 2.8 2.6 Gaston # (Auto) 0.6 0.5 Eos # (Auto) 0.3 0.3 Baso # (Auto) 0.02 0.01 ESR 26 H Sodium 136 Potassium 4.3 Chloride 107 Carbon Dioxide 21 Anion Gap 12 BUN 18 Creatinine 0.7 L Est GFR ( Amer) > 60 Est GFR (Non-Af Amer) > 60 POC Glucose (mg/dL) Random Glucose 122 H Hemoglobin A1c Calcium 9.5 Phosphorus Magnesium Total Bilirubin 0.4 AST 28 ALT 24 Alkaline Phosphatase 94 C-Reactive Protein Total Protein 7.6 Albumin 4.0 Globulin 3.7 Albumin/Globulin Ratio 1.1 Procalcitonin 03/14/18 03/14/18 03/14/18 06:00 06:00 06:00 WBC RBC Hgb Hct MCV MCH MCHC RDW Plt Count MPV Gran % Lymph % (Auto) Gaston % (Auto) Eos % (Auto) Baso % (Auto) Gran # Lymph # (Auto) Gaston # (Auto) Eos # (Auto) Baso # (Auto) ESR Sodium 136 Potassium 4.3 Chloride 106 Carbon Dioxide 22 Anion Gap 12 BUN 15 Creatinine 0.7 L Est GFR ( Amer) > 60 Est GFR (Non-Af Amer) > 60 POC Glucose (mg/dL) Random Glucose 145 H Hemoglobin A1c Calcium 9.6 Phosphorus 4.2 Magnesium 1.7 Total Bilirubin 0.5 AST 25 ALT 23 Alkaline Phosphatase 86 C-Reactive Protein 10.10 H Total Protein 7.3 Albumin 3.8 Globulin 3.5 Albumin/Globulin Ratio 1.1 Procalcitonin < 0.05 L 03/14/18 03/14/18 03/14/18 06:00 08:27 11:50 WBC RBC Hgb Hct MCV MCH MCHC RDW Plt Count MPV Gran % Lymph % (Auto) Gaston % (Auto) Eos % (Auto) Baso % (Auto) Gran # Lymph # (Auto) Gaston # (Auto) Eos # (Auto) Baso # (Auto) ESR Sodium Potassium Chloride Carbon Dioxide Anion Gap BUN Creatinine Est GFR ( Amer) Est GFR (Non-Af Amer) POC Glucose (mg/dL) 152 H 188 H Random Glucose Hemoglobin A1c 9.5 H Calcium Phosphorus Magnesium Total Bilirubin AST ALT Alkaline Phosphatase C-Reactive Protein Total Protein Albumin Globulin Albumin/Globulin Ratio Procalcitonin 03/14/18 15:45 WBC RBC Hgb Hct MCV MCH MCHC RDW Plt Count MPV Gran % Lymph % (Auto) Gaston % (Auto) Eos % (Auto) Baso % (Auto) Gran # Lymph # (Auto) Gaston # (Auto) Eos # (Auto) Baso # (Auto) ESR Sodium Potassium Chloride Carbon Dioxide Anion Gap BUN Creatinine Est GFR ( Amer) Est GFR (Non-Af Amer) POC Glucose (mg/dL) 217 H Random Glucose Hemoglobin A1c Calcium Phosphorus Magnesium Total Bilirubin AST ALT Alkaline Phosphatase C-Reactive Protein Total Protein Albumin Globulin Albumin/Globulin Ratio Procalcitonin Assessment & Plan - Assessment and Plan (Free Text) Assessment: Infectious diseases Attending Physician Attestation Patient seen and examined, discussed with medical assistant secretary. I have reviewed the patient's history of present illness, past medical, social, personal and family histories, pertinent physical exam findings, course so far in this hospital admission, pertinent laboratory and imaging results. I agree with the above findings, assessment and plan. In addition, we have started Vancomycin for left leg skin and skin structure infection around the knee area. Knee joint has full range of motion and there is no joint effusion. will follow up wound cx, blood cx and will monitor clinical response.
[2018-03-14] MEDS: Insulin Human NPH 1 UNITS/0.01 ML SC SCH (22:55)
[2018-03-15 06:34] LABS: ALB/GLOB RATIO 1.2 (1.1-1.8); ALBUMIN 3.9 g/dL (3.0-4.8); ALT/SGPT 19 U/L (7-56); AST/SGOT 26 U/L (17-59); BLOOD UREA NITROGEN 18 mg/dL (7-21); CALCIUM 9.3 mg/dL (8.4-10.5); GFR NON-AFRICAN AMERICAN > 60
[2018-03-15 06:35] LABS: BASO # 0.02 K/mm3 (0.0-2.0); BASO % 0.3 % (0.0-3.0); EOS # 0.3 (0.0-0.7); GRAN # 3.36 (1.4-6.5); GRAN % 51.2 % (50.0-68.0); HEMOGLOBIN 12.8 g/dL (14.0-18.0); LYMPH # 2.3 (1.2-3.4); LYMPH % 35.4 % (22.0-35.0); MEAN CELL VOLUME 85.3 fl (80.0-105.0); MEAN PLATELET VOLUME 10.7 fl (7.0-11.0); MONO # 0.5 (0.1-0.6); MONO % 8.1 % (1.0-6.0); RBC 4.41 10^6/uL (3.5-6.1); RED CELL DISTRIBUTION WIDTH 13.5 % (11.5-14.5); WHITE BLOOD COUNT 6.6 10^3/uL (4.5-11.0)
[2018-03-15] MEDS: Pantoprazole 40 mg EC Tab PO SCH (06:35)
[2018-03-15] MEDS: Insulin Reg-LOW-Coverage SC SCH ×4 (08:12→22:06)
[2018-03-15] MEDS: Enoxaparin 40 mg Syringe SC SCH (10:50)
[2018-03-15] MEDS: Metoprolol Succinate 25 mg XL Tab PO SCH (10:51)
[2018-03-15] MEDS: cefTRIAXone 1 gm 1 GM/100 ML BAG IVPB SCH (10:51)
[2018-03-15] MEDS: Vancomycin 1gm in NS 250ml 1 GM/250 ML BAG IVPB SCH (12:22)
--- NOTE | 2018-03-15 13:34 | CP.PCM.PN ---
<Christopher Shannon - Last Filed: 03/15/18 15:32> Subjective - Date & Time of Evaluation Date of Evaluation: 03/15/18 Time of Evaluation: 08:30 - Subjective Subjective: Patient seen and examined at bedside in no acute distress. States he slept well overnight and notices increased mobility in his left knee. Patient denies fevers, chills, pain, nausea, vomiting, diarrhea, abdominal pain, chest pain, headache, cough. Objective - Vital Signs/Intake and Output Vital Signs (last 24 hours): Temp Pulse Resp BP Pulse Ox 97.7 F 72 18 135/82 94 L 03/15/18 09:02 03/15/18 10:51 03/15/18 09:02 03/15/18 10:51 03/15/18 09:02 - Medications Medications: Current Medications Acetaminophen (Tylenol 325mg Tab) 650 mg PO Q6H PRN PRN Reason: Fever >100.4 F Aspirin (Aspirin Chewable) 81 mg PO DAILY [facility] Last Admin: 03/15/18 10:50 Dose: 81 mg Atorvastatin Calcium (Lipitor) 40 mg PO DIN [facility] Last Admin: 03/14/18 17:39 Dose: 40 mg Clopidogrel Bisulfate (Plavix) 75 mg PO DAILY [facility] Last Admin: 03/15/18 10:51 Dose: 75 mg Enoxaparin Sodium (Lovenox) 40 mg SC DAILY [facility]; Protocol Last Admin: 03/15/18 10:50 Dose: 40 mg Vancomycin HCl (Vancomycin 1gm) 1 gm in 250 mls @ 167 mls/hr IVPB Q12H [facility]; Protocol Last Admin: 03/15/18 12:22 Dose: 167 mls/hr Ceftriaxone Sodium (Rocephin 1 Gram Ivpb) 1 gm in 100 mls @ 100 mls/hr IVPB DAILY [facility]; Protocol Last Admin: 03/15/18 10:51 Dose: 100 mls/hr Insulin Human NPH (Humulin N) 10 units SC HS [facility] Last Admin: 03/14/18 22:55 Dose: 10 units Insulin Human Regular (Humulin R Low) 0 units SC ACHS [facility]; Protocol Last Admin: 03/15/18 12:22 Dose: 3 unit Isosorbide Mononitrate (Imdur Er) 30 mg PO BID [facility] Last Admin: 03/15/18 10:50 Dose: 30 mg Lisinopril (Zestril) 10 mg PO DAILY [facility] Last Admin: 03/15/18 10:51 Dose: 10 mg Metoprolol Succinate (Toprol Xl) 25 mg PO DAILY [facility] Last Admin: 03/15/18 10:51 Dose: 25 mg Pantoprazole Sodium (Protonix Ec Tab) 40 mg PO 0600 [facility] Last Admin: 03/15/18 06:35 Dose: 40 mg - Labs Labs: 03/15/18 05:30 03/15/18 05:30 - Constitutional Appears: Non-toxic, No Acute Distress - Head Exam Head Exam: ATRAUMATIC, NORMAL INSPECTION, NORMOCEPHALIC - Eye Exam Eye Exam: EOMI, Normal appearance - ENT Exam ENT Exam: Mucous Membranes Moist - Respiratory Exam Respiratory Exam: Clear to Ausculation Bilateral, NORMAL BREATHING PATTERN - Cardiovascular Exam Cardiovascular Exam: REGULAR RHYTHM, +S1, +S2 - GI/Abdominal Exam GI & Abdominal Exam: Soft, Normal Bowel Sounds - Extremities Exam Extremities Exam: Full ROM - Back Exam Back Exam: NORMAL INSPECTION - Neurological Exam Neurological Exam: Alert, Awake, CN II-XII Intact, Oriented x3 - Psychiatric Exam Psychiatric exam: Normal Affect, Normal Mood - Skin Skin Exam: Normal Color, Warm Additional comments: mild erythema at site of 2 cm wound on left knee; has improved as well as improvement in swelling since admission. Assessment and Plan - Assessment and Plan (Free Text) Assessment: This is a 57 year old Slovak speaking male with PMH of DM, HLD, HTN and CAD s/p 2 stents in 07/2017 presenting to the hospital for left knee swelling. Plan: Left knee swelling -Cellulitis -afebrile, no WBC present -blood culture final result pending, wound culture: gram neg annie gram pos cocci -vancomycin day 2 -Left knee xray does not show acute abnormalities -CRP elevated -HgA1c 9.5 -ID on consult -Gen surg on consult Hx of CAD s/p stents -continue ASA, plavix Hx of HTN -continue home BP meds. Toprol XL, imdur and lisinopril Hx of DM -insulin ACHS, 10 units HS Hx of HLD -continue statin PPX/Diet -loveno, protonix -HHD Patient seen and case discussed with attending, Dr. Guerrero <Jose Cruz Guerrero - Last Filed: 03/15/18 18:29> Objective - Vital Signs/Intake and Output Vital Signs (last 24 hours): Temp Pulse Resp BP Pulse Ox 98.0 F 69 20 104/58 L 95 03/15/18 16:55 03/15/18 16:55 03/15/18 16:55 03/15/18 16:55 03/15/18 16:55 - Medications Medications: Current Medications Acetaminophen (Tylenol 325mg Tab) 650 mg PO Q6H PRN PRN Reason: Fever >100.4 F Aspirin (Aspirin Chewable) 81 mg PO DAILY [facility] Last Admin: 03/15/18 10:50 Dose: 81 mg Atorvastatin Calcium (Lipitor) 40 mg PO DIN [facility] Last Admin: 03/15/18 17:54 Dose: 40 mg Clopidogrel Bisulfate (Plavix) 75 mg PO DAILY [facility] Last Admin: 03/15/18 10:51 Dose: 75 mg Enoxaparin Sodium (Lovenox) 40 mg SC DAILY [facility]; Protocol Last Admin: 03/15/18 10:50 Dose: 40 mg Vancomycin HCl (Vancomycin 1gm) 1 gm in 250 mls @ 167 mls/hr IVPB Q12H [facility]; Protocol Last Admin: 03/15/18 12:22 Dose: 167 mls/hr Ceftriaxone Sodium (Rocephin 1 Gram Ivpb) 1 gm in 100 mls @ 100 mls/hr IVPB DAILY [facility]; Protocol Last Admin: 03/15/18 10:51 Dose: 100 mls/hr Insulin Human NPH (Humulin N) 10 units SC HS [facility] Last Admin: 03/14/18 22:55 Dose: 10 units Insulin Human Regular (Humulin R Low) 0 units SC ACHS [facility]; Protocol Last Admin: 03/15/18 17:54 Dose: 2 unit Isosorbide Mononitrate (Imdur Er) 30 mg PO BID [facility] Last Admin: 03/15/18 17:56 Dose: 30 mg Lisinopril (Zestril) 10 mg PO DAILY [facility] Last Admin: 03/15/18 10:51 Dose: 10 mg Metoprolol Succinate (Toprol Xl) 25 mg PO DAILY [facility] Last Admin: 03/15/18 10:51 Dose: 25 mg Pantoprazole Sodium (Protonix Ec Tab) 40 mg PO 0600 [facility] Last Admin: 03/15/18 06:35 Dose: 40 mg - Labs Labs: 12/15/18 05:30 03/15/18 05:30 Attending/Attestation - Attestation I have personally seen and examined this patient.: Yes I have fully participated in the care of the patient.: Yes I have reviewed all pertinent clinical information, including history, physical exam and plan: Yes Notes (Text): 03/15/18 18:27 Medical record note made by the resident after discussion with my direction and input after the patient was personally seen and examined by me. I have reviewed the chart and agree that the record accurately reflects by personal performance of the history, physical exam, data review, and medical decision-making, in the course for the patient. I have also personally directed the plan of care. 57 year old Slovak speaking male with PMH of DM, HLD, HTN and CAD s/p 2 stents in 07/2017 presenting to the hospital for left knee swelling found to have cellulitis on IV antibiotics as per ID. Wound cultures are growing gram negative annie, blood cultures are negative. We will follow up cultures. Management plan was discussed in detail with patient. Education was provided
--- NOTE | 2018-03-15 19:43 | CP.PCM.PN ---
Subjective - Date & Time of Evaluation Date of Evaluation: 03/15/18 Time of Evaluation: 10:05 - Subjective Subjective: Left knee is feeling a little better, no fevers. Objective - Vital Signs/Intake and Output Vital Signs (last 24 hours): Temp Pulse Resp BP Pulse Ox 97.9 F 74 20 94/60 L 94 L 03/14/18 15:54 03/14/18 15:54 03/14/18 15:54 03/14/18 15:54 03/14/18 15:54 Intake and Output: 03/14/18 03/15/18 18:59 06:59 Intake Total 1270 Balance 1270 - Medications Medications: Current Medications Acetaminophen (Tylenol 325mg Tab) 650 mg PO Q6H PRN PRN Reason: Fever >100.4 F Aspirin (Aspirin Chewable) 81 mg PO DAILY [facility] Last Admin: 03/14/18 09:51 Dose: 81 mg Atorvastatin Calcium (Lipitor) 40 mg PO DIN [facility] Last Admin: 03/14/18 17:39 Dose: 40 mg Clopidogrel Bisulfate (Plavix) 75 mg PO DAILY [facility] Last Admin: 03/14/18 09:51 Dose: 75 mg Enoxaparin Sodium (Lovenox) 40 mg SC DAILY [facility]; Protocol Last Admin: 03/14/18 09:52 Dose: 40 mg Vancomycin HCl (Vancomycin 1gm) 1 gm in 250 mls @ 167 mls/hr IVPB Q12H [facility]; Protocol Last Admin: 03/14/18 11:27 Dose: 167 mls/hr Insulin Human NPH (Humulin N) 10 units SC HS [facility] Insulin Human Regular (Humulin R Low) 0 units SC ACHS [facility]; Protocol Last Admin: 03/14/18 17:38 Dose: 2 unit Isosorbide Mononitrate (Imdur Er) 30 mg PO BID [facility] Last Admin: 03/14/18 17:38 Dose: 30 mg Lisinopril (Zestril) 10 mg PO DAILY [facility] Last Admin: 03/14/18 09:51 Dose: 10 mg Metoprolol Succinate (Toprol Xl) 25 mg PO DAILY [facility] Last Admin: 03/14/18 09:51 Dose: 25 mg Pantoprazole Sodium (Protonix Ec Tab) 40 mg PO 0600 [facility] Last Admin: 03/14/18 05:51 Dose: 40 mg - Labs Labs: 03/14/18 06:00 12/14/18 06:00 - Constitutional Appears: Chronically Ill - Head Exam Head Exam: NORMAL INSPECTION - Respiratory Exam Respiratory Exam: Decreased Breath Sounds - Cardiovascular Exam Cardiovascular Exam: +S1, +S2 - GI/Abdominal Exam GI & Abdominal Exam: Soft. absent: Tenderness - Extremities Exam Additional comments: left knee with decreased erythema, full ROM Assessment and Plan - Assessment and Plan (Free Text) Plan: Assessment left leg skin and skin structure infection around the knee area DM dyslipidemia CAD Plan continue Vancomycin and started Rocephin since GPC and GNB are growing from the wound - follow up final culture results will monitor clinically
[2018-03-15] MEDS: Insulin Human NPH 1 UNITS/0.01 ML SC SCH (22:04)
[2018-03-16] MEDS: Vancomycin 1gm in NS 250ml 1 GM/250 ML BAG IVPB SCH ×2 (00:30→11:58)
[2018-03-16] MEDS: Pantoprazole 40 mg EC Tab PO SCH (06:32)
[2018-03-16 07:11] LABS: BASO # 0.01 K/mm3 (0.0-2.0); BASO % 0.2 % (0.0-3.0); EOS # 0.3 (0.0-0.7); EOS % 5.3 % (1.5-5.0); GRAN # 2.39 (1.4-6.5); GRAN % 43.4 % (50.0-68.0); HEMOGLOBIN 12.9 g/dL (14.0-18.0); LYMPH # 2.4 (1.2-3.4); LYMPH % 44.2 % (22.0-35.0); MEAN CORPUSCULAR HEMOGLOBIN 28.9 pg (25.0-35.0); MEAN CORPUSCULAR HGB CONC 33.9 g/dl (31.0-37.0); MEAN PLATELET VOLUME 10.7 fl (7.0-11.0); MONO # 0.4 (0.1-0.6); MONO % 6.9 % (1.0-6.0); RBC 4.47 10^6/uL (3.5-6.1); RED CELL DISTRIBUTION WIDTH 13.3 % (11.5-14.5); WHITE BLOOD COUNT 5.5 10^3/uL (4.5-11.0)
[2018-03-16 07:57] LABS: ALB/GLOB RATIO 1.1 (1.1-1.8); ALBUMIN 3.8 g/dL (3.0-4.8); ALT/SGPT 28 U/L (7-56); AST/SGOT 28 U/L (17-59); BLOOD UREA NITROGEN 18 mg/dL (7-21); CALCIUM 9.1 mg/dL (8.4-10.5); GFR NON-AFRICAN AMERICAN > 60
[2018-03-16 08:11] VITALS: BP 110/70; RESP 19; TEMP 97.7; O2SAT 94
[2018-03-16] MEDS: Insulin Reg-LOW-Coverage SC SCH ×2 (10:54→11:57)
[2018-03-16] MEDS: Enoxaparin 40 mg Syringe SC SCH (10:54)
[2018-03-16] MEDS: cefTRIAXone 1 gm 1 GM/100 ML BAG IVPB SCH (10:55)
[2018-03-16] MEDS: Metoprolol Succinate 25 mg XL Tab PO SCH (10:55)
[2018-03-16 11:09] VITALS: PULSE 73
--- NOTE | 2018-03-16 14:59 | CP.PCM.DIS ---
<Christopher Shannon - Last Filed: 03/16/18 14:54> Provider - Provider Date of Admission: 03/13/18 23:53 Attending physician: Jose Cruz Guerrero MD Consults: 03/13/18 23:53 Physician Consult Routine Comment: Consulting Provider: Miller Recinos Consulting Physician: Miller Recinos Reason for Consult: Lower Extremity Cellulitis; Failed Outpatient treatment 03/14/18 05:46 Physician Consult Routine Comment: Consulting Provider: Sanjay Kim Consulting Physician: Sanjay Kim Reason for Consult: LLE ?abscess Time Spent in preparation of Discharge (in minutes): 40 Diagnosis - Discharge Diagnosis (1) Cellulitis Status: Acute Priority: High Hospital Course - Lab Results Lab Results: Micro Results 03/13/18 22:49 Knee - Left Gram Stain - Final 03/13/18 22:49 Knee - Left Wound Culture - Final Enterobacter Cloacae Ssp Cloac Methicillin Resistant S Aureus 03/13/18 22:49 Blood Blood Culture - Preliminary NO GROWTH AFTER 48 HOURS 03/13/18 21:43 Blood Blood Culture - Preliminary NO GROWTH AFTER 48 HOURS Most Recent Lab Values WBC 5.5 10^3/uL (4.5-11.0) 03/16/18 06:30 RBC 4.47 10^6/uL (3.5-6.1) 03/16/18 06:30 Hgb 12.9 g/dL (14.0-18.0) L 03/16/18 06:30 Hct 38.0 % (42.0-52.0) L 03/16/18 06:30 MCV 85.0 fl (80.0-105.0) 03/16/18 06:30 MCH 28.9 pg (25.0-35.0) 03/16/18 06:30 MCHC 33.9 g/dl (31.0-37.0) 03/16/18 06:30 RDW 13.3 % (11.5-14.5) 03/16/18 06:30 Plt Count 222 10^3/uL (120.0-450.0) 03/16/18 06:30 MPV 10.7 fl (7.0-11.0) 03/16/18 06:30 Gran % 43.4 % (50.0-68.0) L 03/16/18 06:30 Lymph % (Auto) 44.2 % (22.0-35.0) H 03/16/18 06:30 [place] % (Auto) 6.9 % (1.0-6.0) H 03/16/18 06:30 Eos % (Auto) 5.3 % (1.5-5.0) H 03/16/18 06:30 Baso % (Auto) 0.2 % (0.0-3.0) 03/16/18 06:30 Gran # 2.39 (1.4-6.5) 03/16/18 06:30 Lymph # (Auto) 2.4 (1.2-3.4) 03/16/18 06:30 [place] # (Auto) 0.4 (0.1-0.6) 03/16/18 06:30 Eos # (Auto) 0.3 (0.0-0.7) 03/16/18 06:30 Baso # (Auto) 0.01 K/mm3 (0.0-2.0) 03/16/18 06:30 ESR 26 mm/hr (0.00-15.0) H 03/14/18 06:00 Sodium 137 mmol/L (132-148) 03/16/18 06:30 Potassium 3.8 mmol/L (3.6-5.0) 03/16/18 06:30 Chloride 104 mmol/L (98-107) 03/16/18 06:30 Carbon Dioxide 25 mmol/L (21-33) 03/16/18 06:30 Anion Gap 12 (10-20) 03/16/18 06:30 BUN 18 mg/dL (7-21) 03/16/18 06:30 Creatinine 0.8 mg/dl (0.8-1.5) 03/16/18 06:30 Est GFR ( Amer) > 60 03/16/18 06:30 Est GFR (Non-Af Amer) > 60 03/16/18 06:30 POC Glucose (mg/dL) 183 mg/dL (65-110) H 03/16/18 07:28 Random Glucose 193 mg/dL (70-110) H 03/16/18 06:30 Hemoglobin A1c 9.5 % (4.2-6.5) H 03/14/18 06:00 Calcium 9.1 mg/dL (8.4-10.5) 03/16/18 06:30 Phosphorus 4.2 mg/dL (2.5-4.5) 03/14/18 06:00 Magnesium 1.7 mg/dL (1.7-2.2) 03/14/18 06:00 Total Bilirubin 0.5 mg/dL (0.2-1.3) 03/16/18 06:30 AST 28 U/L (17-59) 03/16/18 06:30 ALT 28 U/L (7-56) 03/16/18 06:30 Alkaline Phosphatase 69 U/L (38-126) 03/16/18 06:30 C-Reactive Protein 10.10 mg/L (0.0-9.9) H 03/14/18 06:00 Total Protein 7.2 g/dL (5.8-8.3) 03/16/18 06:30 Albumin 3.8 g/dL (3.0-4.8) 03/16/18 06:30 Globulin 3.4 gm/dL 03/16/18 06:30 Albumin/Globulin Ratio 1.1 (1.1-1.8) 03/16/18 06:30 Procalcitonin < 0.05 NG/ML (0.19-0.49) L 03/14/18 06:00 HIV 1&2 Ag/Ab, 4th Gen Nonreactive (Nonreactive) 03/14/18 06:00 - Hospital Course Hospital Course: Patient is a 57 M with PMH herpes, gonorrhea, CAD s/p 2 stents, and NIDDM presenting with left knee infection. Imaging rule out abscess formation which tailored patient's therapy to antibiotics alone; I&D was not ncessary. Patient was followed and seen by medical team, infectious disease, and surgery. Wound cultures returned positive for MRSA, GPC and GNC. Organisms found were noted to be susceptible to Bactrim which patient will take for 7 more days. Patient was seen and examined at bedside today. Patient denied any pain, stiffness, fevers, chills, drainage, nausea, vomiting. He will follow up with [facility] medical clinic to establish care. Patient states he can afford to pay $4 at [employer] for the medication and will take as prescribed. Patient was in agreement with plan of diana mace. Case discussed with Dr. Cesar Shannon PGY2 Discharge Exam - Head Exam Head Exam: NORMAL INSPECTION - Eye Exam Eye Exam: EOMI, Normal appearance - Respiratory Exam Respiratory Exam: Clear to PA & Lateral, UNREMARKABLE - Cardiovascular Exam Cardiovascular Exam: REGULAR RHYTHM - GI/Abdominal Exam GI & Abdominal Exam: Normal Bowel Sounds - Extremities Exam Additional comments: Erythema of elft knee resoled, decreased edema in comparison to yesterday's exam - Neurological Exam Neurological exam: Alert, CN II-XII Intact, Oriented x3 - Psychiatric Exam Psychiatric exam: Normal Affect, Normal Mood - Skin Skin Exam: Normal Color, Warm Discharge Plan - Discharge Medications Prescriptions: Sulfamethoxazole/Trimethoprim [Bactrim DS 800 mg-160 mg] 1 tab PO BID #14 tab - Follow Up Plan Condition: STABLE Disposition: HOME/ ROUTINE Instructions: Cellulitis (DC), Cellulitis (GEN) Additional Instructions: 1.Please follow up at the neighborhood clinic at [facility] 2.Please take medication as prescribed. Bactrim will cost $4 at [facility]. 3.Return to the nearest ED if symptoms worsen or return. <Jose Cruz Guerrero - Last Filed: 03/16/18 15:55> Provider - Provider Date of Admission: 03/13/18 23:53 Attending physician: Jose Cruz Guerrero MD Consults: 03/13/18 23:53 Physician Consult Routine Comment: Consulting Provider: Miller Recinos Consulting Physician: Miller Recinos Reason for Consult: Lower Extremity Cellulitis; Failed Outpatient treatment 03/14/18 05:46 Physician Consult Routine Comment: Consulting Provider: Sanjay Kim Consulting Physician: Sanjay Kim Reason for Consult: LLE ?abscess Hospital Course - Lab Results Lab Results: Micro Results 03/13/18 22:49 Knee - Left Gram Stain - Final 03/13/18 22:49 Knee - Left Wound Culture - Final Enterobacter Cloacae Ssp Cloac Methicillin Resistant S Aureus 03/13/18 22:49 Blood Blood Culture - Preliminary NO GROWTH AFTER 48 HOURS 03/13/18 21:43 Blood Blood Culture - Preliminary NO GROWTH AFTER 48 HOURS Most Recent Lab Values WBC 5.5 10^3/uL (4.5-11.0) 03/16/18 06:30 RBC 4.47 10^6/uL (3.5-6.1) 03/16/18 06:30 Hgb 12.9 g/dL (14.0-18.0) L 03/16/18 06:30 Hct 38.0 % (42.0-52.0) L 03/16/18 06:30 MCV 85.0 fl (80.0-105.0) 03/16/18 06:30 MCH 28.9 pg (25.0-35.0) 03/16/18 06:30 MCHC 33.9 g/dl (31.0-37.0) 03/16/18 06:30 RDW 13.3 % (11.5-14.5) 03/16/18 06:30 Plt Count 222 10^3/uL (120.0-450.0) 03/16/18 06:30 MPV 10.7 fl (7.0-11.0) 03/16/18 06:30 Gran % 43.4 % (50.0-68.0) L 03/16/18 06:30 Lymph % (Auto) 44.2 % (22.0-35.0) H 03/16/18 06:30 [place] % (Auto) 6.9 % (1.0-6.0) H 03/16/18 06:30 Eos % (Auto) 5.3 % (1.5-5.0) H 03/16/18 06:30 Baso % (Auto) 0.2 % (0.0-3.0) 03/16/18 06:30 Gran # 2.39 (1.4-6.5) 03/16/18 06:30 Lymph # (Auto) 2.4 (1.2-3.4) 03/16/18 06:30 [place] # (Auto) 0.4 (0.1-0.6) 03/16/18 06:30 Eos # (Auto) 0.3 (0.0-0.7) 03/16/18 06:30 Baso # (Auto) 0.01 K/mm3 (0.0-2.0) 03/16/18 06:30 ESR 26 mm/hr (0.00-15.0) H 03/14/18 06:00 Sodium 137 mmol/L (132-148) 03/16/18 06:30 Potassium 3.8 mmol/L (3.6-5.0) 03/16/18 06:30 Chloride 104 mmol/L (98-107) 03/16/18 06:30 Carbon Dioxide 25 mmol/L (21-33) 03/16/18 06:30 Anion Gap 12 (10-20) 03/16/18 06:30 BUN 18 mg/dL (7-21) 03/16/18 06:30 Creatinine 0.8 mg/dl (0.8-1.5) 03/16/18 06:30 Est GFR ( Amer) > 60 03/16/18 06:30 Est GFR (Non-Af Amer) > 60 03/16/18 06:30 POC Glucose (mg/dL) 183 mg/dL (65-110) H 03/16/18 07:28 Random Glucose 193 mg/dL (70-110) H 03/16/18 06:30 Hemoglobin A1c 9.5 % (4.2-6.5) H 03/14/18 06:00 Calcium 9.1 mg/dL (8.4-10.5) 03/16/18 06:30 Phosphorus 4.2 mg/dL (2.5-4.5) 03/14/18 06:00 Magnesium 1.7 mg/dL (1.7-2.2) 03/14/18 06:00 Total Bilirubin 0.5 mg/dL (0.2-1.3) 03/16/18 06:30 AST 28 U/L (17-59) 03/16/18 06:30 ALT 28 U/L (7-56) 03/16/18 06:30 Alkaline Phosphatase 69 U/L (38-126) 03/16/18 06:30 C-Reactive Protein 10.10 mg/L (0.0-9.9) H 03/14/18 06:00 Total Protein 7.2 g/dL (5.8-8.3) 03/16/18 06:30 Albumin 3.8 g/dL (3.0-4.8) 03/16/18 06:30 Globulin 3.4 gm/dL 03/16/18 06:30 Albumin/Globulin Ratio 1.1 (1.1-1.8) 03/16/18 06:30 Procalcitonin < 0.05 NG/ML (0.19-0.49) L 03/14/18 06:00 HIV 1&2 Ag/Ab, 4th Gen Nonreactive (Nonreactive) 03/14/18 06:00 Attending/Attestation - Attestation I have personally seen and examined this patient.: Yes I have fully participated in the care of the patient.: Yes I have reviewed all pertinent clinical information, including history, physical exam and plan: Yes Notes (Text): 03/16/18 15:54 Medical record note made by the resident after discussion with my direction and input after the patient was personally seen and examined by me. I have reviewed the chart and agree that the record accurately reflects by personal performance of the history, physical exam, data review, and medical decision-making, in the course for the patient. I have also personally directed the plan of care. 57 year old Montenegrin speaking male with PMH of DM, HLD, HTN and CAD s/p 2 stents in 07/2017 presenting to the hospital for left knee swelling found to have cellulitis ,responded well to IV antibiotics as per ID. Wound cultures grew MRSA and enterbacter.Blood cultures are negative for any growth. Patient will be discharged home on oral Bactrim and will follow up with [facility] Clinic. Management plan was discussed in detail with patient. Education was provided
--- NOTE | 2018-03-16 19:08 | CP.PCM.PN ---
Subjective - Date & Time of Evaluation Date of Evaluation: 03/16/18 Time of Evaluation: 09:55 - Subjective Subjective: Comfortable, no fevers, not in distress. Left knee feels better. Objective - Vital Signs/Intake and Output Vital Signs (last 24 hours): Temp Pulse Resp BP Pulse Ox 98.0 F 69 20 104/58 L 95 03/15/18 16:55 03/15/18 16:55 03/15/18 16:55 03/15/18 16:55 03/15/18 16:55 Intake and Output: 03/15/18 03/16/18 18:59 06:59 Intake Total 1400 Balance 1400 - Medications Medications: Current Medications Acetaminophen (Tylenol 325mg Tab) 650 mg PO Q6H PRN PRN Reason: Fever >100.4 F Aspirin (Aspirin Chewable) 81 mg PO DAILY [facility] Last Admin: 03/15/18 10:50 Dose: 81 mg Atorvastatin Calcium (Lipitor) 40 mg PO DIN [facility] Last Admin: 03/15/18 17:54 Dose: 40 mg Clopidogrel Bisulfate (Plavix) 75 mg PO DAILY [facility] Last Admin: 03/15/18 10:51 Dose: 75 mg Enoxaparin Sodium (Lovenox) 40 mg SC DAILY [facility]; Protocol Last Admin: 03/15/18 10:50 Dose: 40 mg Vancomycin HCl (Vancomycin 1gm) 1 gm in 250 mls @ 167 mls/hr IVPB Q12H [facility]; Protocol Last Admin: 03/15/18 12:22 Dose: 167 mls/hr Ceftriaxone Sodium (Rocephin 1 Gram Ivpb) 1 gm in 100 mls @ 100 mls/hr IVPB DAILY [facility]; Protocol Last Admin: 03/15/18 10:51 Dose: 100 mls/hr Insulin Human NPH (Humulin N) 10 units SC HS [facility] Last Admin: 03/14/18 22:55 Dose: 10 units Insulin Human Regular (Humulin R Low) 0 units SC ACHS [facility]; Protocol Last Admin: 03/15/18 17:54 Dose: 2 unit Isosorbide Mononitrate (Imdur Er) 30 mg PO BID [facility] Last Admin: 03/15/18 17:56 Dose: 30 mg Lisinopril (Zestril) 10 mg PO DAILY [facility] Last Admin: 03/15/18 10:51 Dose: 10 mg Metoprolol Succinate (Toprol Xl) 25 mg PO DAILY [facility] Last Admin: 03/15/18 10:51 Dose: 25 mg Pantoprazole Sodium (Protonix Ec Tab) 40 mg PO 0600 [facility] Last Admin: 03/15/18 06:35 Dose: 40 mg - Labs Labs: 03/15/18 05:30 03/15/18 05:30 - Constitutional Appears: Chronically Ill - Head Exam Head Exam: NORMAL INSPECTION - Respiratory Exam Respiratory Exam: Decreased Breath Sounds - Cardiovascular Exam Cardiovascular Exam: +S1, +S2 - GI/Abdominal Exam GI & Abdominal Exam: Soft. absent: Tenderness - Extremities Exam Additional comments: left knee with dressings in place Assessment and Plan - Assessment and Plan (Free Text) Plan: Assessment left leg skin and skin structure infection around the knee area, with Enterobacter and MRSA DM dyslipidemia CAD Plan on Vancomycin and Rocephin - can switch to PO Bactrim and continue for another 7 days and should follow up with PMD discussed with medical team
== END 2018-03-16 18:12 | disposition home or self-care (01) | DRG 383 ==
LOC: ED 20:27 → ERH 23:53 → 3RSO 03-14 01:09
PROVIDERS: ADMIT Internal Medicine; ATTEND Internal Medicine
DX: L03.116 Cellulitis of left lower limb (principal); L02.416 Cutaneous abscess of left lower limb; B95.62 Methicillin resistant Staphylococcus aureus infection as the cause of diseases classified elsewhere; B96.89 Other specified bacterial agents as the cause of diseases classified elsewhere; E11.9 Type 2 diabetes mellitus without complications; I25.10 Atherosclerotic heart disease of native coronary artery without angina pectoris; I10 Essential (primary) hypertension; E78.5 Hyperlipidemia, unspecified; Z79.84 Long term (current) use of oral hypoglycemic drugs; Z95.5 Presence of coronary angioplasty implant and graft